=== PATIENT | female | born 1940 | race Caucasian/White ===

== ENCOUNTER 2025-01-27 18:44 | Emergency (ER) | payer MEDICARE, MEDICAID ==
[~2025-01-27] VITALS: Ht 162.6 cm; Wt 68.0 kg
[~2025-01-27 18:44] MED LIST: ASPI-1406 MT; BENZ100C86 PO; CALC-26 PO; FAMO20TA8 PO; FURO-151 MT; LOSA50TA41 MT; METO-385 PO; P20 PO
[2025-01-27 18:45] VITALS: O2SAT 96
[2025-01-27] MEDS ORDERED: MECLIZINE 25MG TABLET PO ONE (19:00)
[2025-01-27] MEDS ORDERED: KETOROLAC 15MG/ML VIAL IV SCH (19:30)
[2025-01-27 19:47] LABS: BASOPHILS % 1.1 % (0.0-2.0); EOSINOPHILS % 0.8 % (0.0-5.0); HEMATOCRIT. 42.1 % (36.0-48.0); HEMOGLOBIN. 13.7 g/dL (12.0-16.0); LYMPHOCYTES % 24.9 % (20.0-50.0); MEAN PLATELET VOLUME 7.7 fl (7.4-10.4); MONOCYTES % 8.0 % (2.0-8.0); NEUTROPHILS % 65.2 % (40.0-76.0); PLATELET 328 x1000/uL (130-400); RED BLOOD CELL COUNT 4.99 mill/uL (4.2-5.4); RED CELL DISTRIBUTION WIDTH 14.8 % (11.6-14.6)
[2025-01-27 20:06] LABS: CREATININE 1.0 mg/dL (0.6-1.0); UREA NITROGEN BLOOD 12.0 mg/dL (9-23)
[2025-01-27] MEDS ORDERED: MECL-299 MT (20:15)
[2025-01-27] MEDS ORDERED: IBUP-1455 MT (20:15)
[2025-01-27] MEDS: KETOROLAC 15MG/ML VIAL IV ONE (21:03)
[2025-01-27] MEDS: MECLIZINE 25MG TABLET PO SCH (21:03)
[2025-01-27 22:30] VITALS: BP 158/78; PULSE 92; RESP 16; TEMP 36.7; O2SAT 96
== END 2025-01-27 22:56 | disposition home or self-care (01) ==
LOC: ER 18:44
DX: H81.10 Benign paroxysmal vertigo, unspecified ear (principal); G44.209 Tension-type headache, unspecified, not intractable; I10 Essential (primary) hypertension; I63.9 Cerebral infarction, unspecified; Z79.52 Long term (current) use of systemic steroids; Z79.82 Long term (current) use of aspirin; Z79.899 Other long term (current) drug therapy
CPT/HCPCS: 99285; 96374; 70450; 80048; 85025; 36415; 93005; J1885; J8597